=== PATIENT | male | born 1990 | race African-American/Black ===

== ENCOUNTER 2016-04-30 19:36 | Emergency (ER) | payer SELFPAY ==
[~2016-04-30] VITALS: Ht 180.3 cm; Wt 111.4 kg
[~2016-04-30 19:36] MED LIST: TRAM50 PO; ZOVI800T13 PO
[2016-04-30 19:50] VITALS: BP 126/89; PULSE 70; RESP 18; TEMP 98.1; O2SAT 99
[2016-04-30] MEDS ORDERED: LIDOCAINE HCL 1% 50 ML VIAL INFIL ONE (20:30)
[2016-04-30] MEDS ORDERED: TETANUS/DIPHTHERIA TOXOID ADULT 0.5 ML VIAL IM ONE (20:30)
--- NOTE | 2016-04-30 20:30 | PD ---
HPI Chief Complaint: Laceration/Skin Injury Time Seen by Provider: 20:20 Travel History International Travel<30 days: No Contact w/Intl Traveler<30days: No Traveled to known affect area: No History of Present Illness HPI Patient is a 25-year-old male sent into the emergency department for evaluation of a laceration to his right second finger. Patient states he cut his finger with a box annealer at approximately 3 PM this afternoon. He denies any significant pain. His tetanus vaccine is not up-to-date. [facility] Past Medical History Medical History: Denies Significant Hx Diminished Hearing: No Immunizations Current: Yes Tetanus Vaccination: > 5 Years Influenza Vaccination: No Past Surgical History Surgical History: No Previous Surgery Social History Alcohol Use: Yes (occ) Tobacco Use: Yes Substance Use: Yes (pot) Allergies-Medications (Allergen,Severity, Reaction): Coded Allergies: No Known Allergies (Unverified , 04/30/16) Reported Meds & Prescriptions Reported Meds & Active Scripts Active No Active Prescriptions or Reported Medications Review of Systems Except as stated in HPI: all other systems reviewed are Neg Skin: Positive Other (laceration to finger) Physical Exam Narrative GENERAL: Well-nourished, well-developed patient. SKIN: Warm and dry. 3 cm laceration to the right second finger from the MCP to the PIP joint HEAD: Normocephalic. EYES: No scleral icterus. No injection or drainage. NECK: Supple, trachea midline. No JVD or lymphadenopathy. CARDIOVASCULAR: Regular rate and rhythm without murmurs, gallops, or rubs. RESPIRATORY: Breath sounds equal bilaterally. No accessory muscle use. GASTROINTESTINAL: Abdomen soft, non-tender, nondistended. MUSCULOSKELETAL: No cyanosis, or edema. Patient is neurovascularly intact, full range of motion in right hand and fingers. Brisk less than 3 second capillary refill. BACK: Nontender without obvious deformity. No CVA tenderness. Data Data Last Documented VS Vital Signs Date Time Temp Pulse Resp B/P Pulse Ox O2 Delivery O2 Flow Rate FiO2 04/30/16 19:50 98.1 70 18 126/89 99 Orders Tetanus/Diphtheria Tox Adult (Tetanus/Di (04/30/16 20:30) Lidocaine 1% Inj (50 Ml) (Xylocaine 1% I (04/30/16 20:30) MDM Medical Decision Making Medical Screen Exam Complete: Yes Emergency Medical Condition: Yes Interpretation(s) Vital Signs Date Time Temp Pulse Resp B/P Pulse Ox O2 Delivery O2 Flow Rate FiO2 04/30/16 19:50 98.1 70 18 126/89 99 Differential Diagnosis Laceration versus abrasion versus fracture versus other Narrative Course Patient is a 25-year-old male who presented to the emergency department for evaluation of a laceration to his right second finger that occurred earlier this afternoon. Patient is neurovascularly intact, is full range of motion in his right hand and fingers. Please see procedure report for laceration repair. Patient tolerated procedure well. He was advised to keep very clean and dry, sutures will need be removed in 10 days. He was encouraged, to emergency department follow-up with his primary provider for this. He was encouraged to return to emergency department immediately for any new or worsening symptoms. Patient's tetanus vaccine was updated emergency department as well. Patient is stable for discharge. Procedures Procedure Narrative LACERATION LOCATION: Right second finger LENGTH: 3 cm NUMBER OF STITCHES/ABHISHEK: 8 stitches REPAIR: The area of the laceration was prepped with Betadine and sterilely draped. The laceration was infiltrated with 1% Xylocaine. The wound was copiously irrigated and explored without evidence of foreign body, tendon injury or neurovascular injury. The wound was closed using 4-0 Prolene. This was a 1 layer repair. A sterile dressing was applied. The patient was advised to keep the dressing clean and dry. Patient tolerated the procedure well. Diagnosis Primary Impression: Laceration Additional Impression: Vaccine for diphtheria-tetanus Referrals: Primary Care Physician Patient Instructions: Care For Your Stitches (ED), Finger Laceration (ED), General Instructions, Stitches Removal (DC) Additional Instructions: Follow-up with your primary doctor Stitches will need to be removed in 10 days, this can be done in the emergency department or with her primary doctor Keep sutures clean and dry, cover with nonocclusive dressing such as gauze or a Band-Aid Apply topical antibiotic ointment Return to emergency department immediately for any new or worsening symptoms Med/Other Pt SpecificInfo: Prescription(s) given Scripts Ibuprofen 800 Mg [id number] Mg PO Q8H PRN (Pain/Inflammation) 10 Days Ref 0 Prov:Loren Olmos 04/30/16 Cephalexin (Keflex)500 Mg [id number] Mg PO Q12H 5 Days Ref 0 Prov:Loren Olmos 04/30/16 Disposition: 01 DISCHARGE HOME Condition: Stable Loren Olmos Apr 30, 2016 20:30
[2016-04-30] MEDS ORDERED: IBUP800T23 PO (20:52)
[2016-04-30] MEDS ORDERED: CEPH-460 PO (20:52)
== END 2016-04-30 21:09 | disposition home or self-care (01) ==
LOC: PHEFT 19:36
DX: S61.214A Laceration without foreign body of right ring finger without damage to nail, initial encounter (principal); Z23 Encounter for immunization; F12.10 Cannabis abuse, uncomplicated; W27.8XXA Contact with other nonpowered hand tool, initial encounter; Y93.9 Activity, unspecified; Y92.9 Unspecified place or not applicable; Y99.9 Unspecified external cause status
CPT/HCPCS: 12002; 90471; 90714